=== PATIENT | male | born 1980 | race Caucasian/White ===

== ENCOUNTER 2019-02-01 02:10 | Emergency (ER) | payer OTHER ==
[~2019-02-01] VITALS: Ht 182.9 cm; Wt 96.2 kg
[~2019-02-01 02:10] MED LIST: NORCO 5-325 TA1 EACH PO
[2019-02-01] MEDS ORDERED: FOLIC ACID1 MG PO (02:44)
[2019-02-01] MEDS ORDERED: THIAMINE HCL100 MG PO (02:45)
[2019-02-01] MEDS ORDERED: VISTARIL25 MG PO (02:46)
[2019-02-01] MEDS ORDERED: IBUPROFEN400 MG PO (02:47)
== END 2019-02-01 03:00 | disposition home or self-care (01) ==
LOC: ED 02:10
DX: J45.901 Unspecified asthma with (acute) exacerbation (principal); F17.200 Nicotine dependence, unspecified, uncomplicated; Z88.5 Allergy status to narcotic agent; Z79.899 Other long term (current) drug therapy
CPT/HCPCS: 94640; 94664; 99283

== ENCOUNTER 2019-10-24 19:33 | Emergency (ER) | payer OTHER ==
[~2019-10-24] VITALS: Ht 182.9 cm; Wt 77.1 kg
[~2019-10-24 19:33] MED LIST changes: +FOLIC ACID1 MG PO; +IBUPROFEN400 MG PO; +THIAMINE HCL100 MG PO; +VISTARIL25 MG PO
[2019-10-24] MEDS ORDERED: ABILIFY10 MG PO (19:50)
[2019-10-24] MEDS ORDERED: NORCO 5-325 TA1 EACH PO (21:50)
[2019-10-24] MEDS ORDERED: DOXYCYCLINE HY100 MG PO (21:50)
[2019-10-24] MEDS ORDERED: TRAMADOL HCL50 MG PO (21:58)
== END 2019-10-24 22:21 | disposition home or self-care (01) ==
LOC: ED 19:33
DX: A54.01 Gonococcal cystitis and urethritis, unspecified (principal); F17.200 Nicotine dependence, unspecified, uncomplicated; Z88.8 Allergy status to other drugs, medicaments and biological substances; Z88.5 Allergy status to narcotic agent; Z79.899 Other long term (current) drug therapy
CPT/HCPCS: 87205; 87491; 87591; 96372; 99283; J0696

== ENCOUNTER 2021-04-14 23:40 | Emergency (ER) | payer OTHER ==
[~2021-04-14] VITALS: Ht 180.3 cm; Wt 72.6 kg
[~2021-04-14 23:40] MED LIST changes: +ABILIFY10 MG PO; +DOXYCYCLINE HY100 MG PO; +TRAMADOL HCL50 MG PO
[2021-04-15] MEDS ORDERED: CYCLOBENZAPRINE10 MG PO (01:24)
[2021-04-15] MEDS ORDERED: DICLOFENAC SODI75 MG PO (01:24)
== END 2021-04-15 01:41 | disposition home or self-care (01) ==
LOC: ED 23:40
DX: M75.101 Unspecified rotator cuff tear or rupture of right shoulder, not specified as traumatic (principal); F17.200 Nicotine dependence, unspecified, uncomplicated; Z88.5 Allergy status to narcotic agent; Z88.8 Allergy status to other drugs, medicaments and biological substances
CPT/HCPCS: 73030; 99283-25

== ENCOUNTER 2022-06-22 20:24 | Emergency (ER) | payer OTHER ==
[~2022-06-22] VITALS: Ht 180.3 cm; Wt 71.7 kg
[~2022-06-22 20:24] MED LIST changes: +CYCLOBENZAPRINE10 MG PO; +DICLOFENAC SODI75 MG PO
== END 2022-06-22 22:20 | disposition home or self-care (01) ==
LOC: ED 20:24
DX: R56.9 Unspecified convulsions (principal); S00.93XA Contusion of unspecified part of head, initial encounter; F15.90 Other stimulant use, unspecified, uncomplicated; F17.200 Nicotine dependence, unspecified, uncomplicated; Z88.5 Allergy status to narcotic agent; Z88.8 Allergy status to other drugs, medicaments and biological substances; X58.XXXA Exposure to other specified factors, initial encounter
CPT/HCPCS: 36415; 70450; 70486; 71045; 72125; 73502; 80053; 81001; 83735; 85025; G0480; J7121

== ENCOUNTER 2023-01-05 16:59 | Emergency (ER) | payer OTHER ==
[~2023-01-05] VITALS: Ht 180.3 cm; Wt 76.5 kg
[2023-01-05] MEDS ORDERED: NAPROSYN500 MG PO (18:46)
== END 2023-01-05 19:43 | disposition home or self-care (01) ==
LOC: ED 16:59
DX: K40.30 Unilateral inguinal hernia, with obstruction, without gangrene, not specified as recurrent (principal); F17.200 Nicotine dependence, unspecified, uncomplicated; Z88.5 Allergy status to narcotic agent
CPT/HCPCS: 74176; 81001; 87591; 99284-25; A9270

== ENCOUNTER 2023-12-10 11:38 | Emergency (ER) | payer OTHER ==
[~2023-12-10] VITALS: Ht 180.3 cm; Wt 72.8 kg
[~2023-12-10 11:38] MED LIST changes: +NAPROSYN500 MG PO
--- OUTSIDE RECORDS SUMMARY | 2023-12-10 11:40 | XMS ---
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 - Patient eloped before treatment completed. - Patient with suicidal and/or homicidal ideations eloped. Details: Left AMA CRITERIA MET - Group Notification CARE PROVIDERS [facility] Clinic/Center: [facility] Current \F\ [facility] PHONE: [phone] Sherry has no Care Guidelines for this patient. Deshaun VISIT COUNT (12 MO.) [address] TOTAL 4 NOTE: Visits indicate total known visits. ED/UCC VISIT TRACKING (12 MO.) 12/10/2023 11:39 [facility] [place] TYPE: Emergency COMPLAINT: - FATIGUE, HEADACHE, WAVY SIGHT, HEARING THINGS 05/29/2023 17:15 [facility] [place] TYPE: Emergency COMPLAINT: - HEAD INJURY DIAGNOSES: - Allergy status to narcotic agent - Nicotine dependence, unspecified, uncomplicated - Other senior care (current) drug therapy - Other stimulant abuse, uncomplicated - Procedure and treatment not carried out due to patient leaving prior to being seen by health care provider - Syncope and collapse 03/10/2023 16:02 [facility] [place] TYPE: Emergency DIAGNOSES: - Unspecified convulsions - SEIZURE 01/05/2023 16:59 [facility]: Emergency COMPLAINT: - ABDOMINAL PAIN DIAGNOSES: - Allergy status to narcotic agent - Left lower quadrant pain - Nicotine dependence, unspecified, uncomplicated - Unilateral inguinal hernia, with obstruction, without gangrene, not specified as recurrent INPATIENT VISIT TRACKING (12 MO.) No inpatient visits to display in this time frame [email or web address]
[2023-12-10] MEDS ORDERED: ZYPREXA10 MG PO (12:21)
[2023-12-10 12:40] VITALS: BP 123/76
== END 2023-12-10 12:43 | disposition home or self-care (01) ==
LOC: ED 11:38
DX: F20.9 Schizophrenia, unspecified (principal); F17.200 Nicotine dependence, unspecified, uncomplicated; Z88.5 Allergy status to narcotic agent
CPT/HCPCS: 99284

== ENCOUNTER 2024-02-19 17:13 | Inpatient (IN) | payer OTHER ==
[~2024-02-19] VITALS: Ht 180.3 cm; Wt 70.0 kg
[~2024-02-19 17:13] MED LIST changes: +ZYPREXA10 MG PO
--- OUTSIDE RECORDS SUMMARY | 2024-02-19 17:20 | XMS ---
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 - Patient eloped before treatment completed. - Patient with suicidal and/or homicidal ideations eloped. Details: Left AMA CRITERIA MET - Group Notification CARE PROVIDERS [facility] Clinic/Center: [facility] Current \F\ [facility] PHONE: [phone] Sherry has no Care Guidelines for this patient. Deshaun VISIT COUNT (12 MO.) [address] TOTAL 4 NOTE: Visits indicate total known visits. 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
[2024-02-19] MEDS ORDERED: NALOXONE HCL 4 MG in DEXTROSE 5% 250 ML IV SCH (17:30)
[2024-02-19] MEDS ORDERED: SODIUM CHLORIDE 0.9% 1,000 ML IV PRN ×2 (17:30→18:45)
[2024-02-19 17:36] LABS: BASOPHILS 1.3 % (0-2); EOSINOPHILS 2.3 % (0-6); HEMATOCRIT 42.2 % (35.0-50.0); HEMOGLOBIN 14.4 g/dL (12.0-18.0); LYMPHOCYTES 23.5 % (24-44); MCH 32.3 (27-36); MCHC 34.2 g/dl (30-36); MCV 94.4 fl (81-99); MONOCYTES 6.6 % (0-12); NEUTROPHILS 66.3 % (39-80); PLATELET COUNT 354 K/uL (140-440); RBC 4.48 M/ul (4.3-5.7); RDW 12.7 (10.5-15.0)
[2024-02-19 17:49] LABS: ALBUMIN 4.1 g/dL (3.4-5.0); ALBUMIN/GLOBULIN RATIO 1.21 (1.1-2.4); ALCOHOL, MEDICAL <3 ng/dL (<3); ALKALINE PHOSPHATASE 100 U/L (46-116); ALT (SGPT) 36 U/L (14-59); ANION GAP 12.7 (7-21); AST (SGOT) 27 U/L (15-37); BILIRUBIN, TOTAL 0.8 ng/dL (0.2-1.0); CALCIUM 8.6 mg/dL (8.5-10.1); CARBON DIOXIDE 27 mmol/L (21-32); CHLORIDE 102 mmol/L (98-107); CREATININE, SERUM 1.18 mg/dL (0.70-1.30); GLOMERULAR FILTRATION RATE,EST 79 mL/min (>60); MAGNESIUM 2.1 mg/dL (1.8-2.4); POTASSIUM 3.7 mmol/L (3.5-5.1); PROTEIN, TOTAL 7.5 g/dL (6.4-8.2); UREA NITROGEN 19 mg/dL (7-18)
[2024-02-19 20:22] LABS: BILIRUBIN, URINE NEGATIVE (negative); BLOOD/HGB, URINE TRACE-I (Negative); KETONE, URINE NEGATIVE (Negative); LEUK ESTERASE, URINE NEGATIVE (negative); NITRITE, URINE NEGATIVE (negative)
[2024-02-19 20:31] LABS: BACTERIA, URINE 1+ /hpf (negative); CASTS, URINE HYALINE 1+ \\lpf; CRYSTALS, URINE NONE SEEN (0-1+); EPITHELIAL CELLS, URINE NS /lpf (0-1+)
[2024-02-19 20:32] LABS: COLLECTION TYPE, URINE CLEAN CATCH; REFLEX CULTURE, URINE No (No)
[2024-02-19 20:36] LABS: AMPHETAMINES, URINE POSITIVE (NEGATIVE); BARBITURATES, URINE NEGATIVE (NEGATIVE); BENZODIAZEPINE, URINE NEGATIVE (NEGATIVE); BUPRENORPHINE, URINE NEGATIVE (NEGATIVE); CANNABINOID, URINE NEGATIVE (NEGATIVE); COCAINE, URINE NEGATIVE (NEGATIVE); ECSTASY, URINE POSITIVE (NEGATIVE); FENTANYL, URINE POSITIVE (NEGATIVE); METHADONE, URINE NEGATIVE (NEGATIVE); OPIATES, URINE NEGATIVE (NEGATIVE); OXYCODONE, URINE NEGATIVE (NEGATIVE); PHENCYCLIDINE, URINE NEGATIVE (NEGATIVE)
[2024-02-19] MEDS ORDERED: LACTATED RINGER'S 1,000 ML IV SCH (21:15)
[2024-02-19] MEDS ORDERED: ACETAMINOPHEN 325 MG TAB PO PRN (21:15)
[2024-02-19] MEDS ORDERED: ondansetron HCL 4 MG/2 ML VIAL IV PRN (21:15)
[2024-02-19 22:30] VITALS: BP 116/77
[2024-02-19 23:00] VITALS: BP 107/75
[2024-02-19 23:05] VITALS: BP 107/75
[2024-02-19 23:30] VITALS: BP 115/75
[2024-02-20] VITALS (20 sets, daily range): BP systolic 103–117; BP diastolic 58–75
[2024-02-20] MEDS ORDERED: NALOXONE HCL 4 MG/10 ML MDV ONE (02:00)
[2024-02-20 05:34] LABS: BASOPHILS 1.1 % (0-2); EOSINOPHILS 2.9 % (0-6); HEMATOCRIT 40.6 % (35.0-50.0); HEMOGLOBIN 13.6 g/dL (12.0-18.0); MCH 31.8 (27-36); MCHC 33.5 g/dl (30-36); MCV 95.2 fl (81-99); MONOCYTES 9.1 % (0-12); NEUTROPHILS 61.9 % (39-80); PLATELET COUNT 291 K/uL (140-440); RBC 4.26 M/ul (4.3-5.7); RDW 12.9 (10.5-15.0)
[2024-02-20 05:39] LABS: ALBUMIN 3.2 g/dL (3.4-5.0); ALBUMIN/GLOBULIN RATIO 1.14 (1.1-2.4); ANION GAP 10.7 (7-21); BILIRUBIN, TOTAL 1.3 ng/dL (0.2-1.0); BUN/CREATININE RATIO 16.27 (6.0-28.6); CALCIUM 7.6 mg/dL (8.5-10.1); CREATININE, SERUM 0.86 mg/dL (0.70-1.30); MAGNESIUM 1.8 mg/dL (1.8-2.4); PHOSPHORUS, INORGANIC 3.3 mg/dL (2.5-4.9); POTASSIUM 3.7 mmol/L (3.5-5.1)
[2024-02-20] MEDS ORDERED: PHARMACY RENAL DOSE ADJUSTMENT 1 DOSE MISC PO SCH (12:00)
[2024-02-20] MEDS ORDERED: PROCHLORPERAZINE EDISYLATE 10 MG/2 ML VIAL IV PRN (12:30)
[2024-02-20] MEDS ORDERED: LORazepam 1 MG TAB PO PRN (12:30)
[2024-02-21 05:23] VITALS: BP 113/76
[2024-02-21 05:48] LABS: BASOPHILS 0.8 % (0-2); EOSINOPHILS 4.2 % (0-6); HEMATOCRIT 41.6 % (35.0-50.0); MCH 31.9 (27-36); MCHC 33.7 g/dl (30-36); MCV 94.7 fl (81-99); MONOCYTES 7.2 % (0-12); NEUTROPHILS 64.8 % (39-80); PLATELET COUNT 290 K/uL (140-440); RBC 4.39 M/ul (4.3-5.7); RDW 12.8 (10.5-15.0)
[2024-02-21 06:11] LABS: ALBUMIN 3.1 g/dL (3.4-5.0); BILIRUBIN, TOTAL 1.2 ng/dL (0.2-1.0); BUN/CREATININE RATIO 9.63 (6.0-28.6); CALCIUM 8.2 mg/dL (8.5-10.1); CREATININE, SERUM 0.83 mg/dL (0.70-1.30); MAGNESIUM 1.9 mg/dL (1.8-2.4); PROTEIN, TOTAL 6.2 g/dL (6.4-8.2)
[2024-02-21 08:23] VITALS: BP 119/82
[2024-02-21] MEDS ORDERED: NARCAN4 MG NAS (09:53)
[2024-02-21] MEDS ORDERED: NALOXONE 4 MG NASAL SPRAY #2 HOME.PACK NAS ONE (10:00)
--- NOTE | 2024-02-21 22:46 | EKG ---
[facility] [address] [place] [address] Signed Normal sinus rhythm Possible Left atrial enlargement RSR' or QR pattern in V1 suggests right ventricular conduction delay Minimal voltage criteria for LVH, may be normal variant ( Sokolow-Christopher ) Prolonged QT Abnormal ECG No previous ECGs available Confirmed by Jarvis Krishnan MD () on 02/21/2024 10:46:33 PM Electronically Signed By: JARVIS KRISHNAN MD 02/21/24 2246 PATIENT NAME: ANGIE LAM Electrocardiogram DATE OF : 82 PHYSICIAN: JARVIS KRISHNAN MD REPORT #: [id number] REPORT IS CONFIDENTIAL AND NOT TO BE RELEASED WITHOUT AUTHORIZATION
== END 2024-02-21 10:30 | disposition home or self-care (01) | DRG 918 ==
LOC: ED 17:13 → CCU 17:14
PROVIDERS: Emergency Medicine; ADMIT Family Medicine; ATTEND Family Medicine
DX: T43.621A Poisoning by amphetamines, accidental (unintentional), initial encounter (principal); T40.411A Poisoning by fentanyl or fentanyl analogs, accidental (unintentional), initial encounter; T43.641A Poisoning by ecstasy, accidental (unintentional), initial encounter; R73.9 Hyperglycemia, unspecified; F17.210 Nicotine dependence, cigarettes, uncomplicated; Z85.038 Personal history of other malignant neoplasm of large intestine; Z85.46 Personal history of malignant neoplasm of prostate; Z90.49 Acquired absence of other specified parts of digestive tract; Z98.890 Other specified postprocedural states; Z88.5 Allergy status to narcotic agent
CPT/HCPCS: 36415; 71045; 80053; 80307; 81001; 83735; 84100; 84484; 85025; 93005; 93010; G0480; J0780; J2405; J3490; J7030; J7060; J7121

== ENCOUNTER 2024-07-31 00:16 | Emergency (ER) | payer OTHER ==
[~2024-07-31] VITALS: Ht 180.3 cm; Wt 71.4 kg
[~2024-07-31 00:16] MED LIST changes: +NARCAN4 MG NAS
--- OUTSIDE RECORDS SUMMARY | 2024-07-31 00:20 | XMS ---
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 05/29/2023 17:15 - Patient eloped with IV in place. - Patient eloped before treatment completed. - Patient with suicidal and/or homicidal ideations eloped. Details: Left AMA CRITERIA MET - Group Notification CARE PROVIDERS [facility] Clinic/Center: [facility] Current \F\ [facility] PHONE: [phone] Sherry has no Care Guidelines for this patient. Deshaun VISIT COUNT (12 MO.) 3 [facility] TOTAL 3 NOTE: Visits indicate total known visits. ED/UCC VISIT TRACKING (12 MO.) 07/31/2024 00:16 [facility] TYPE: Emergency COMPLAINT: - ABD PAIN 02/19/2024 17:13 [facility] TYPE: Emergency COMPLAINT: - OVERDOSE 12/10/2023 11:39 [facility] TYPE: Emergency COMPLAINT: - FATIGUE, HEADACHE, WAVY SIGHT, HEARING THINGS DIAGNOSES: - Allergy status to narcotic agent - Headache, unspecified - Nicotine dependence, unspecified, uncomplicated - Schizophrenia, unspecified INPATIENT VISIT TRACKING (12 MO.) 02/20/2024 15:48 [facility] [place] TYPE: Critical Care COMPLAINT: - DRUG OVERDOSE DIAGNOSES: - Acquired absence of other specified parts of digestive tract - Acquired absence of other specified parts of digestive tract - Allergy status to narcotic agent - Allergy status to narcotic agent - Hyperglycemia, unspecified - Hyperglycemia, unspecified - Nicotine dependence, cigarettes, uncomplicated - Nicotine dependence, cigarettes, uncomplicated - Other specified postprocedural states - Other specified postprocedural states - Personal history of malignant neoplasm of prostate - Personal history of malignant neoplasm of prostate - Personal history of other malignant neoplasm of large intestine - Personal history of other malignant neoplasm of large intestine - Poisoning by amphetamines, accidental (unintentional), initial encounter - Poisoning by ecstasy, accidental (unintentional), initial encounter - Poisoning by fentanyl or fentanyl analogs, accidental (unintentional), initial encounter - Poisoning by fentanyl or fentanyl analogs, accidental (unintentional), initial encounter [id number]
[2024-07-31 00:32] LABS: BASOPHILS 1.1 % (0-2); EOSINOPHILS 5.1 % (0-6); HEMATOCRIT 38.7 % (35.0-50.0); HEMOGLOBIN 13.4 g/dL (12.0-18.0); LYMPHOCYTES 33.1 % (24-44); MCHC 34.6 g/dl (30-36); MCV 95.3 fl (81-99); MONOCYTES 8.6 % (0-12); NEUTROPHILS 52.1 % (39-80); PLATELET COUNT 301 K/uL (140-440); RBC 4.06 M/ul (4.3-5.7); RDW 12.9 (10.5-15.0)
[2024-07-31 00:45] LABS: ALBUMIN 4.1 g/dL (3.4-5.0); ALBUMIN/GLOBULIN RATIO 1.46 (1.1-2.4); ANION GAP 9.6 (7-21); BILIRUBIN, TOTAL 0.6 ng/dL (0.2-1.0); BUN/CREATININE RATIO 11.22 (6.0-28.6); CALCIUM 8.9 mg/dL (8.5-10.1); CREATININE, SERUM 0.98 mg/dL (0.70-1.30); POTASSIUM 3.6 mmol/L (3.5-5.1); PROTEIN, TOTAL 6.9 g/dL (6.4-8.2)
[2024-07-31 01:10] VITALS: BP 140/90
== END 2024-07-31 01:10 | disposition left against medical advice (07) ==
LOC: ED 00:16
PROVIDERS: Emergency Medicine
DX: R10.12 Left upper quadrant pain (principal); F17.200 Nicotine dependence, unspecified, uncomplicated; Z85.46 Personal history of malignant neoplasm of prostate; Z85.038 Personal history of other malignant neoplasm of large intestine; Z92.21 Personal history of antineoplastic chemotherapy; Z90.49 Acquired absence of other specified parts of digestive tract; Z88.5 Allergy status to narcotic agent; Z53.29 Procedure and treatment not carried out because of patient's decision for other reasons
CPT/HCPCS: 36415; 74177; 80053; 83690; 85025; 99284; Q9967

== ENCOUNTER 2025-03-17 09:06 | Emergency (ER) | payer OTHER ==
[~2025-03-17] VITALS: Ht 180.3 cm; Wt 72.5 kg
--- OUTSIDE RECORDS SUMMARY | 2025-03-17 09:07 | XMS ---
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 Deshaun [facility] (12 MO.) [facility] NOTE: Visits indicate total known visits. ED/UCC VISIT TRACKING (12 MO.) 03/17/2025 09:06 [facility] TYPE: Emergency COMPLAINT: - SCRAPE ON FACE 07/31/2024 00:16 [facility] TYPE: Emergency COMPLAINT: - ABD PAIN DIAGNOSES: - Acquired absence of other specified parts of digestive tract - Allergy status to narcotic agent - Left upper quadrant pain - Nicotine dependence, unspecified, uncomplicated - Personal history of antineoplastic chemotherapy - Personal history of malignant neoplasm of prostate - Personal history of other malignant neoplasm of large intestine - Procedure and treatment not carried out because of patient's decision for other reasons INPATIENT VISIT TRACKING (12 MO.) No inpatient visits to display in this time frame [id number]
[2025-03-17 10:45] VITALS: BP 128/85
== END 2025-03-17 10:45 | disposition other institution, planned readmission (95) ==
LOC: ED 09:06
DX: S00.411A Abrasion of right ear, initial encounter (principal); F17.200 Nicotine dependence, unspecified, uncomplicated; Z88.5 Allergy status to narcotic agent; X58.XXXA Exposure to other specified factors, initial encounter
CPT/HCPCS: 70450; 99284-25